=== PATIENT | female | born 1985 | race Asian ===

== ENCOUNTER 2016-10-16 00:34 | Emergency (ER) | payer OTHER ==
[~2016-10-16] VITALS: Ht 167.6 cm; Wt 62.6 kg
[2016-10-16 00:52] VITALS: TEMP 36.4; Ht 167.6 cm; Wt 62.6 kg
[2016-10-16] MEDS ORDERED: DiphenhydrAMINE HCL 50 MG/ML VIAL IV STA (01:29)
[2016-10-16] MEDS ORDERED: FAMOTIDINE 20MG/102 ML D5W IV STA (01:29)
[2016-10-16] MEDS ORDERED: METHYLPREDNISOLONE 125 MG VIAL IV STA (01:29)
--- NOTE | 2016-10-16 01:33 | EMERGENCY ROOM VISIT NOTE ---
History Report prepared by Cecilyibhayley: Hector Quinonez Under the Supervision of: Dr. Yvon Maynard D.O. First contact with patient: 01:21 Chief Complaint: ALLERGIC REACTION Stated Complaint: ALLERGY OF SKIN AROUND EYES History of Present Illness The patient is a 31 year old female who presents to the Emergency Room with complaints of worsening periorbital swelling that started this morning. The eyes are itchy and difficult to open secondary to swelling. There is no discharge and she does not have any changes in her vision. She was not rubbing her eyes last night. She does wear makeup around her eyes. There are no rashes elsewhere on her body. The patient did not take Benadryl or apply any cold compresses. Source of History: patient Onset: this morning Position: eye (bilateal, periorbital) Quality: other (swelling) Timing: worsening Associated Symptoms: No rash Review of Systems See HPI for pertinent positives and negatives. A total of ten systems were reviewed and were otherwise negative. Past Medical & Surgical Medical Problems: (1) No known drug allergy (2) No known health problems Family History No pertinent family history Social History Smoking Status: Never Smoker Housing Status: lives with roommate Current/Historical Medications No Active Prescriptions or Reported Meds Allergies Coded Allergies: No Known Allergies (Unverified , 10/16/16) Physical Exam Vital Signs Date Time Temp Pulse Resp B/P Pulse Ox O2 Delivery O2 Flow Rate FiO2 10/16/16 00:52 36.4 75 16 106/76 98 Room Air Physical Exam GENERAL: Awake, alert, well-appearing, in no distress HENT: Normocephalic, atraumatic. Oropharynx unremarkable. EYES: Normal conjunctiva. Sclera non-icteric. Periorbital edema bilaterally, no obvious signs of cellulitis. NECK: Supple. No nuchal rigidity. FROM. No JVD. RESPIRATORY: Clear to auscultation. CARDIAC: Regular rate, normal rhythm. Extremities warm and well perfused. Pulses equal. ABDOMEN: Soft, non-distended. No tenderness to palpation. No rebound or guarding. No masses. RECTAL: Deferred. MUSCULOSKELETAL: Chest examination reveals no tenderness. The back is symmetrical on inspection without obvious abnormality. There is no CVA tenderness to palpation. No joint edema. LOWER EXTREMITIES: Calves are equal size bilaterally and non-tender. No edema. No discoloration. NEURO: Normal sensorium. No sensory or motor deficits noted. SKIN: No rash or jaundice noted. Medical Decision & Procedures ED Course 0126: The patient was evaluated in room B2. A complete history and physical exam was performed. 0129: Famotidine 20 mg IV, Solu-Medrol 125 mg IV, Benadryl 50 mg IV. 0145: Discussed the discharge instructions with her. She verbalized understanding. The patient is ready for discharge. Medical Decision Differential diagnosis includes allergic reaction, conjunctivitis, seasonal allergies, contact dermatitis. Patient has no evidence of anaphylactic shock. Patient likely has a contact dermatitis from makeup being applied to her face. Patient was treated with antihistamines and steroids. Patient will be sent home on antihistamines and steroids Impression Primary Impression: Allergic reaction Scribe Attestation The scribe's documentation has been prepared under my direction and personally reviewed by me in its entirety. I confirm that the note above accurately reflects all work, treatment, procedures, and medical decision making performed by me. Departure Information Dispostion Home / Self-Care Prescriptions Prednisone (Prednisone) 20 Mg Tab 0 PO DAILY, #18 TAB 3 DAILY FOR 3 DAYS, THEN 2 DAILY FOR 3 DAYS, THEN 1 DAILY FOR 3 DAYS. Prov: Yvon Maynard, DO 10/16/16 Referrals No Doctor, Assigned (PCP) Forms HOME CARE DOCUMENTATION FORM, IMPORTANT VISIT INFORMATION Patient Instructions ED Allergic Reaction General Other, My [facility] Health Problem Qualifiers Primary Impression: Allergic reaction Encounter type: initial encounter Qualified Codes: T78.40XA - Allergy, unspecified, initial encounter
[2016-10-16] MEDS ORDERED: PRED20TA PO (01:35)
[2016-10-16 02:16] VITALS: BP 92/58; PULSE 70; O2SAT 100
== END 2016-10-16 02:19 | disposition home or self-care (01) ==
LOC: C.EDB 00:36
DX: T78.40XA Allergy, unspecified, initial encounter (principal); X58.XXXA Exposure to other specified factors, initial encounter